=== PATIENT | female | born 1965 | race Caucasian/White ===

== ENCOUNTER 2016-12-05 13:03 | Emergency (ER) | payer MEDICAID, OTHER ==
[2016-12-05 13:17] VITALS: TEMP 98.4; O2SAT 94
[2016-12-05] MEDS ORDERED: fentaNYL 100 MCG/2 ML INJ ONE (13:54)
[2016-12-05] MEDS ORDERED: fentaNYL 100 MCG/2 ML INJ IVP ONE (14:09)
--- NOTE | 2016-12-05 14:39 | EDPHY ---
H & P Stated Complaint: Left Shoulder Deformity HPI/ROS: Chief complaint: Left shoulder injury History of present illness: This is a 51-year-old female who presents to the emergency department with EMS for left shoulder injury. Patient was inner tubing down a [place], she jumped out of the inner tube and attempted to go up through the middle of it by raising her hands above her head. At that time she felt significant pain in her left shoulder. She states she is unable to move it since then. She does report some mild tingling in the 4th and 5th digit of her left hand. No direct trauma reported. No injuries to other parts of the body. Review of systems: A 10 point review of systems was obtained and other than described above was negative - Personal History Current Tetanus/Diphtheria Vaccine: Yes Current Tetanus Diphtheria and Acellular Pertussis (TDAP): Yes - Medical/Surgical History Hx Asthma: No Hx Chronic Respiratory Disease: No Hx Diabetes: No Hx Cardiac Disease: No Hx Renal Disease: No Hx Cirrhosis: No Hx Alcoholism: No Hx HIV/AIDS: No Hx Splenectomy or Spleen Trauma: No - Social History Smoking Status: Never smoked - Physical Exam Exam: General Appearance: Alert, nontoxic. Eyes: Pupils equal and round no pallor or injection. ENT, Mouth: Mucous membranes moist. Respiratory: There are no retractions, lungs are clear to auscultation. Cardiovascular: Regular rate and rhythm. Radial pulses 2+. Gastrointestinal: Abdomen is soft and nontender, no masses, bowel sounds normal. Neurological: Alert and oriented x4. Strength and sensation appear intact and symmetrical including sensation intact throughout the left upper extremity. Skin: Warm and dry, no rashes. Musculoskeletal: Patient's left shoulder is held with arm above head, she cannot move it secondary to pain. Mild tenderness in this region. The rest of the left upper extremity is unremarkable. Psychiatric: Patient is oriented X 3, there is no agitation. Constitutional: Initial Vital Signs Temperature (C) 36.9 C 12/05/16 13:14 Heart Rate 80 12/05/16 13:14 Respiratory Rate 14 12/05/16 13:14 Blood Pressure 124/78 H 12/05/16 13:14 O2 Sat (%) 94 12/05/16 13:14 O2 Delivery Mode Room Air Allergies/Adverse Reactions: morphine Allergy (Verified 12/05/16 13:13) Home Medications: Medication Instructions Recorded Dona Allergy 12/05/16 Citracal 12/05/16 buPROPion 12/05/16 traMADol [Ultram 50 mg (*)] 50 mg PO Q4 #10 tab 12/05/16 Medical Decision Making - Diagnostics Imaging Results: Imaging Impressions Shoulder X-Ray 12/05/16 13:08 Impression: Anterior dislocation. Shoulder X-Ray 12/05/16 14:19 Impression: Successful reduction. Imaging: I viewed and interpreted images myself Procedures: Procedure: Dislocation reduction. The dislocation of the left shoulder was reduced using massage and gentle traction technique without complications. Post reduction the patient's neurovascular exam is normal. Post reduction x-ray demonstrates reduction of the joint to the anatomic position. The procedure was performed by myself. Patient placed in a sling. She remained neurovascularly intact. ED Course/Re-evaluation: Patient seen under the supervision of my primary supervising physician Dr. Quynh Helm. Patient presents to the emergency department for left shoulder injury. She appears to be dislocated, she was successfully reduced and placed in a sling. She does appear to be neurovascularly intact. She is referred to Orthopedics for continued evaluation and care. Home care is discussed. She is requesting tramadol for pain, a short prescription is provided. Return precautions are given. Patient voiced understanding and agreement with plan. Differential Diagnosis: Included but not limited to dislocation, fracture, sprain or strain - Data Points Medications Given: Discontinued Medications Fentanyl (Sublimaze) 100 mcg IVP EDNOW ONE Stop: 12/05/16 14:10 Last Admin: 12/05/16 14:16 Dose: 100 mcg Departure - Departure Disposition: Home, Routine, Self-Care Clinical Impression: Shoulder dislocation Qualifiers: Encounter type: initial encounter Laterality: left Qualified Code(s): S43.005A - Unspecified dislocation of left shoulder joint, initial encounter Condition: Good Instructions: Shoulder Dislocation (ED) Additional Instructions: Follow-up with Orthopedics next week for recheck Use [id number] ibuprofen 600 mg 3 times a day for the next 2-3 days for pain If symptoms worsen or new symptoms develop return to the emergency room for recheck Referrals: Patient,NotPresent [Unknown] - As per Instructions Rodrigo Hayden MD [Medical Doctor] - As per Instructions Prescriptions: traMADol [Ultram 50 mg (*)] 50 mg PO Q4 #10 tab
[2016-12-05 15:11] VITALS: BP 112/74; PULSE 76; RESP 16
== END 2016-12-05 15:36 | disposition home or self-care (01) ==
LOC: EDUNIT#
PROC: 0RSKXZZ Reposition Left Shoulder Joint, External Approach (ICD-10-PCS; principal; 2016-12-05)
DX: S43.005A Unspecified dislocation of left shoulder joint, initial encounter (principal); X58.XXXA Exposure to other specified factors, initial encounter; Y99.8 Other external cause status; Y93.16 Activity, rowing, canoeing, kayaking, rafting and tubing
CPT/HCPCS: 96374; A4565; J3010

== ENCOUNTER 2016-12-22 05:46 | Day surgery (SDC) | payer MEDICAID ==
--- NOTE | 2016-12-21 12:29 | GHP ---
[f rep st] PREOP HISTORY AND PHYSICAL DATE OF ADMISSION: 12/22/2016 CHIEF COMPLAINT: Left shoulder recurrent dislocation, pain. HISTORY OF PRESENT ILLNESS: The patient is a pleasant 51-year-old female who presents today for an evaluation of left shoulder injury. She states that she initially injured her left shoulder when she dislocated it while tubing on 12/05. She was seen later in the day at [facility] emergency department where her shoulder was relocated without significant complication. Since that time, the patient has been compliant with her sling use instructions , and followed up in our clinic for orthopedic specialty evaluation. At that time, activity restrictions were reviewed with the patient, and she was sent for additional MRI imaging. She subsequently followed up with Dr. Hayden for discussion of potential treatment options, including surgical intervention. At this time, she has decided to undergo a left shoulder arthroscopic Bankart repair, and possible biceps tenodesis based on MRI findings. She presents today for a preoperative history and physical exam. She has no additional concerns or complaints at this time. PAST MEDICAL HISTORY: This is significant for previous left shoulder dislocation/subluxation episodes and adhesive capsulitis. The patient also reports a past medical history significant for depression and anxiety, with a history of additional left-sided distal radius and carpal fractures (1997). PAST SURGICAL HISTORY: This is significant for manipulation under anesthesia and capsular release of the left shoulder performed by Dr. Rogers in 2012. The patient denies any additional past surgical history. CURRENT MEDICATIONS: The patient reports she is taking bupropion 300 mg daily, Women's multivitamin, fish oil, Citracal, Dona, ibuprofen p.r.n. for current injury, tramadol p.r.n. for current injury, and cyclobenzaprine p.r.n. for current injury. The patient notes that she has not taken her NSAID medications as well as her fish oil for the past week. ALLERGIES: The patient reports an allergy to morphine, and notes that both parents are allergic but denies a specific reaction. SOCIAL HISTORY: The patient denies any current tobacco use, but does state she is a former smoker. The patient reports an alcohol consumption of approximately 0-6 alcoholic beverages per week. The patient denies any recreational drug use. FAMILY HISTORY: No significant contributory family history is reported today. REVIEW OF SYSTEMS: A 10-point review of systems was reviewed today with no additional concerns, complaints, or abnormal findings noted in the HPI or PMH. PHYSICAL EXAMINATION: VITAL SIGNS: Height 5 feet 7 inches. Weighs 185 pounds. GENERAL: Healthy-appearing female in NAD. Pleasant and cooperative with exam. HEENT: NC/AT. EOMI. PERRLA. Ears and nares are patent without discharge. OP is clear. NECK: NTTP, normal in appearance with a midline trachea. No cervical LAD noted. RESPIRATORY: CTAB, no increased WOB noted. CARDIOVASCULAR: RRR, no M/C/G/R. MUSCULOSKELETAL: Left shoulder as compared to right for exam purposes. Exam of left shoulder reveals no signficant swelling, discoloration or deformity. Patient demonstrates some mild TTP over the proximal biceps tendon as well as of the anterior shoulder capsule. The patient reveals some anterior apprehension. Patient exhibits NTTP over the AC joint. The patient is able to flex and extend at the elbow and demonstrates a full elbow, wrist, and hand. ROM. Upper arm compartments are supple. Forearm compartments are supple. The patient has intact light touch sensation distally had. Capillary refills is less than 2 seconds in the finger pulps. DMVI BUE. SKIN: Warm, pink and dry. NEURO: No deficits noted. Speech is noted to be fluid and fluent. PSYCH: A&Ox3, appropriate mood and affect, pleasant and cooperative with exam. RADIOGRAPHS: Pre- and postreduction films were reviewed showing an anterior dislocation of the glenohumeral joint, with good anatomical alignment in postreduction films. No acute fracture or malalignment is noted. MRI evaluation of the left shoulder confirms a Bankart lesion anteriorly with labral detachment almost circumferentially, sparing the posterior and inferior portions. This tear extends through the biceps-biceps anchor into the posterior labrum. The anterior band of the inferior glenohumeral ligament is also involved in this capsular separation. Mild to moderate biceps tendinitis is also noted. ASSESSMENT: 1. Left shoulder recurrent dislocation, instability. 2. Left shoulder biceps tendinitis. PLAN: This patient's case and imaging reviewed with Dr. Hayden today. The patient and Dr. Hayden have discussed several treatment options, including surgical intervention. At this time, the patient has decided to proceed with an arthroscopic Bankart repair and possible biceps tenodesis. A recuperative timeline was discussed with the patient. Risks and benefits of surgical intervention were also discussed with the patient, and signed informed consent was obtained. Preoperative orders were entered into [facility] as this procedure was performed at [facility] on 12/22/2016. The patient was prescribed [place] 7.5/325 mg, #40 for postoperative pain. At this time, the patient will return to clinic in 10-14 days postoperatively, or sooner with any additional concerns or complaints. This appointment has been previously scheduled. It has been my pleasure to assist in the care of this patient. All the patient' s questions have been answered today, and her concerns addressed. She has relayed her understanding of the current care plan and education presented, and appears pleased with the care she has received today. /[id number]/MODL MTDD
[~2016-12-22 05:46] MED LIST: ceFAZolin 2 GM/DEXTROSE 100 ML IV ONE
[2016-12-22] MEDS ORDERED: ceFAZolin 2 GM/DEXTROSE 100 ML IV ONE (06:00)
[2016-12-22] MEDS ORDERED: LR 1,000 ML IV ONE (06:12)
[2016-12-22] MEDS ORDERED: LIDOCAINE 1% 2 ML INJ ID PRN (06:12)
[2016-12-22] MEDS ORDERED: ROPIVACAINE HCL 150 MG/30 ML INJ ONE (06:55)
[2016-12-22] MEDS ORDERED: fentaNYL 100 MCG/2 ML INJ ONE (06:55)
[2016-12-22] MEDS ORDERED: DEXAMETHASONE 4 MG/ML VIAL ONE (06:55)
[2016-12-22] MEDS ORDERED: ONDANSETRON 4 MG/2 ML VIAL ONE (06:55)
[2016-12-22] MEDS ORDERED: ROCURONIUM 50 MG/5 ML VIAL ONE (06:55)
[2016-12-22] MEDS ORDERED: PROPOFOL 200 MG/20 ML VIAL ONE (06:56)
[2016-12-22] MEDS ORDERED: MIDAZOLAM 2 MG/2 ML VIAL IVP ONE (07:01)
[2016-12-22] MEDS ORDERED: BUPIVACAINE/EPI 0.5% 30 ML SDV ONE (07:08)
--- NOTE | 2016-12-22 07:11 | PDANEPAE ---
ANE History of Present Illness Shoulder arthritis ANE Past Medical History - Cardiovascular History Hx Hypertension: No Hx Arrhythmias: No Hx Chest Pain: No Hx Coronary Artery / Peripheral Vascular Disease: No Hx CHF / Valvular Disease: No Hx Palpitations: No - Pulmonary History Hx COPD: No Hx Asthma/Reactive Airway Disease: No Hx Recent Upper Respiratory Infection: No Hx Oxygen in Use at Home: No Hx Sleep Apnea: No Sleep Apnea Screening Result - Last Documented: Negative - Neurologic History Hx Cerebrovascular Accident: No Hx Seizures: No Hx Dementia: No - Endocrine History Hx Diabetes: No - Renal History Hx Renal Disorders: No - Liver History Hx Hepatic Disorders: No - Neurological & Psychiatric Hx Hx Neurological and Psychiatric Disorders: Yes Neurological / Psychiatric History Comment: depression. L5/S1 spondylosthesis. - Cancer History Hx Cancer: No - Congenital Disorder History Hx Congenital Disorders: No - GI History Hx Gastrointestinal Disorders: No - Other Health History Other Health History: L shoulder -gross instability. Malaria 2008 - no residual prob. - Surgical History Prior Surgeries: manipulation under anes/scope for capsular release L shoulder ANE Review of Systems - Exercise capacity METS (RN): 4 METS ANE Patient History - Allergies Allergies/Adverse Reactions: morphine Allergy (Verified 12/21/16 16:39) Other-Enter Comments - Home Medications Home Medications: Dona Allergy 12/05/16 [Last Taken 12/21/16 13:00] buPROPion 12/05/16 [Last Taken 12/20/16] Citrucel 12/21/16 [Last Taken 12/20/16] Fish Oil 12/21/16 [Last Taken 12/20/16] - NPO status NPO Since - Liquids (Date): 12/21/16 NPO Since - Liquids (Time): 23:00 NPO Since - Solids (Date): 12/21/16 - Smoking Hx Smoking Status: Former smoker ANE Labs/Vital Signs - Vital Signs Blood Pressure: 106/67 Heart Rate: 84 Respiratory Rate: 16 O2 Sat (%): 92 Height: 172.09 cm Weight: 86.183 kg ANE Physical Exam - Airway Neck exam: FROM Mallampati Score: Class 1 Mouth exam: normal dental/mouth exam - Pulmonary Pulmonary: no respiratory distress - Cardiovascular Cardiovascular: regular rate and rhythym - ASA Status ASA Status: I
--- NOTE | 2016-12-22 07:19 | PDHPUP ---
History & Physical Update H&P update statement: This history and physical update is based on an assessment of the patient which was completed after admission or registration (within 24 hours), but prior to the surgery/procedure. H&P update: H&P reviewed & patient examined
[2016-12-22] MEDS ORDERED: NALOXONE HCL 0.4 MG/ML INJ IVP PRN ×2 (08:05→08:06)
[2016-12-22] MEDS ORDERED: LR 500 ML IV PRN (08:06)
[2016-12-22] MEDS ORDERED: PROMETHAZINE HCL 25 MG/ML INJ IVP PRN (08:06)
[2016-12-22] MEDS ORDERED: ONDANSETRON 4 MG/2 ML VIAL IVP PRN (08:06)
[2016-12-22] MEDS ORDERED: fentaNYL 100 MCG/2 ML INJ IVP PRN (08:06)
[2016-12-22] MEDS ORDERED: HYDROmorphONE/DILAUDID 1 MG/ML SYR IVP PRN (08:06)
--- NOTE | 2016-12-22 09:36 | POSTOPPROG ---
Post Op Note Date of Operation: 12/22/16 Surgeon: Rodrigo Hayden Outpatient Services Director: Dorota Anesthesia: GET(General Endotracheal) Pre-op Diagnosis: Bankart L jayson, Biceps tendonitis Post-op Diagnosis: Same Procedure: Arthroscipit Bankart repair and open biceps tenodesis Findings: Arthrex Knotless push locks x 3 and endo button x 1 Inf/Abcess present in the surg proc area at time of surgery?: No EBL: Minimal Complications: None
[2016-12-22 09:40] VITALS: PULSE 82; TEMP 97.2
--- NOTE | 2016-12-22 09:50 | POSTANESTH ---
Post Anesthetic Evaluation Cardiovascular Status: Normal, Stable Respiratory Status: Normal, Stable Pain Control: Adequate, Prn Tx Ordered Nausea/Vomiting Control: Adequate, Prn Tx Ordered Complications Possibly Related to Anesthesia: None Noted
[2016-12-22] MEDS ORDERED: ACETAMINOPHEN 325 MG TAB PO PRN (09:54)
[2016-12-22] MEDS ORDERED: ACETAMINOPHEN 325 MG TAB ONE (09:58)
[2016-12-22 10:58] VITALS: RESP 13
[2016-12-22 11:35] VITALS: BP 108/77; O2SAT 92
--- NOTE | 2016-12-22 19:53 | GOP ---
[f rep st] OPERATIVE REPORT DATE OF OPERATION: 12/22/2016 SURGEON: Rodrigo Hayden MD SILVER DESIGNER: Leah Raya PA-C PREOPERATIVE DIAGNOSIS: Bankart lesion, right shoulder with a superior labral grade 3+ detachment. POSTOPERATIVE DIAGNOSIS: Bankart lesion, right shoulder with a superior labral grade 3+ detachment. PROCEDURE PERFORMED: 1. Arthroscopic Bankart procedure. 2. Open biceps tenodesis. 3. Arthroscopic debridement. FINDINGS: A Bankart repair was performed of the anterior labrum and capsule. This involved advanci ng the IGHL and MGHL in a superior direction, consistent with a capsular shift. The labrum was deta ched anteriorly. I sectioned the biceps tendon intra-articularly and then performed a subpectoral b iceps tenodesis. INDICATIONS: The patient is a 51-year-old woman who had a sequence of falls that caused significant shoulder dysfunction and pain. She is brought to the operating room for definitive surgical manage ment of this, after 3-dimensional imaging revealed a Bankart lesion with detachment of the MGHL and anterior band of the IGHL. She has symptomatic instability as well as discomfort along the biceps t endon. She is brought to the operating room for definitive surgical management. DESCRIPTION OF PROCEDURE: After routinely checking the patient's identification and consent, and th e successful induction of LMA general endotracheal anesthetic and a preoperative supraclavicular blo ck, the patient was positioned in the semi-[place] beach chair sitting position. The left upper quad rant was now prepped and draped in usual standard fashion. A surgical time-out was completed. I ma rked bony landmarks on the skin, and then injected the glenohumeral joint with 10 cc of 0.5% Marcain e plus epinephrine, and then a posterior, anterior portal and the anterior axillary crease with 10 c c total of 0.5% Marcaine plus epinephrine. A posterior portal was carried sharply through the skin and then bluntly into the joint. Routine systematic exploration was undertaken. A spinal needle wa s used to assess appropriate anterior portal trajectory, and the anterior portal was carried sharply through skin and then bluntly into the joint. The biceps tendon had some minor fraying on its undersurface, as another deep surface just at its or igin. The entire superior labrum, however, was attached to the biceps, but the labrum was no longer attached to the glenoid. The anterior capsular structures were identified. These also appear to b e relatively freshly torn with the labrum anteriorly. I then used a curette to remove the articular cartilage from the anterior and superior aspect of the glenoid rim. I used a grasper to advance the tissue and identified appropriate position for the 1s t anchor, to advance the IGHL and MGHL. As such, I drilled a hole and then placed the anchor. This was an Arthrex PushLock knotless anchor. After installing the anchor, I passed the suture around t he labrum and then threaded the sutures through the anchor, and then tightened this. Care was taken to place the sutures through the anterior-inferior capsule and advance this superiorly by approxima tely 7-8 mm. Satisfied, in essence I had a separate puncture wound through the capsule to advance t his and a separate puncture through the labrum to join them together, but in a reefed, tightened pos ition. Once this anchor was placed, I placed 2 additional anchors. Of note, on the middle anchor, which was placed at approximately the 9:30 position, the suture became grossly entangled during pass age of the suture. As such, I abandoned the automatic locking feature and tied this with standard a rthroscopic knots. The superior anchor was placed at the junction of the biceps. I felt that the biceps tendon was not adequately attached and had significant fraying. It was such that its normal trajectory leaving th e shoulder was no longer appropriate and it was riding over the anterior aspect of the lesser tubero sity. I then consequently sectioned the biceps tendon and debrided the stump with a shaver. The fi nal anchor was placed superiorly, just at the biceps origin. I then placed the scope in the anterior portal and examined the posterior labrum. It was grossly at tached. There was a loss of bumper effect due to superficial attachment, but I felt that the majori ty of this was in good enough shape and tightened that it did not require repair, in as much as this is her nondominant arm. I then vacuumed debris from the axillary pouch. The arthroscopic instrume nts were removed. An anterior incision in the anterior axillary crease was carried sharply through skin and then blunt ly through her subcutaneous layer. I used digital dissection to dissect under the pectoralis muscle . I was able to retrieve the biceps tendon. I placed a whipstitch in the biceps tendon just proxim al to the musculotendinous junction. The redundant tendon was removed. I drilled a cutter tender hole in t he anterior humeral cortex, then passed the Endo-Button through into the intramedullary space, and f lipped the button. I pulled the 2 sutures, it tightened the tendon and brought it right up to the l evel of the Endo-Button perforation in the bone. I tied the suture over the tendon, pressing it ont o the bone. The wound was irrigated thoroughly. The pectoralis muscle was allowed to resume its normal position . The subcutaneous layer was closed with 4-0 Vicryl, followed by subcuticular 4-0 Monocryl. Each o f the arthroscopic portals were closed with subcuticular 4-0 Vicryl, followed by Steri-Strips at all wounds. Additional 0.25% Marcaine plus epinephrine was infiltrated around the portal sites as well as anteriorly for a total of 30 cc delivered intraoperatively. The patient was reversed from anest hetic and extubated in the operating room. She was transferred to the recovery room in excellent co ndition. She tolerated the procedure well. There were no complications. /[id number]/MODL
== END 2016-12-22 11:10 | disposition home or self-care (01) ==
LOC: FSGY 05:46
PROVIDERS: ATTEND Orthopaedic Surgery Hand Surgery
PROC: 0RBK4ZZ Excision of Left Shoulder Joint, Percutaneous Endoscopic Approach (ICD-10-PCS; principal; 2016-12-22 07:15)
PROC: 0MQ Bursae and Ligaments, Repair (ICD-10-PCS; principal; 2016-12-22 07:15)
PROC: 0LM40ZZ Reattachment of Left Upper Arm Tendon, Open Approach (ICD-10-PCS; principal; 2016-12-22 07:15)
DX: M24.412 Recurrent dislocation, left shoulder (principal); M25.312 Other instability, left shoulder; M75.22 Bicipital tendinitis, left shoulder; Z87.891 Personal history of nicotine dependence
CPT/HCPCS: C1713; J0171; J0690; J1100; J2250; J2405; J2704; J2795; J3010